=== PATIENT | male | born 1950 | race Caucasian/White ===

== ENCOUNTER → 2016-09-07 | Outpatient (CLI) | payer BC ==
--- NOTE | 2016-09-08 10:53 | MR ---
EXAMINATION: MR of the head without contrast. TECHNIQUE: Multiplanar multisequence imaging of the head without intravenous contrast. Diffusion omar ghted sequences were performed. HISTORY: Disorder of Vestibular function. FINDINGS: The cerebral hemispheres and deep nuclei are without hemorrhage, mass, or edema. There is mild gener alized atrophy. No evidence for restricted diffusion. No extraaxial collections or hemorrhage. The ventricular system is of normal size and configuration without hydrocephalus. Brainstem and cerebellum are without hemorrhage, mass, edema, gliosis or atrophy. The carotid basil ar artery flow voids are intact. The otomastoid airspaces are clear. No internal auditory canal or cerebellopontine angle masses. Paranasal sinuses are clear. The craniocervical junction is unremarkable without Chiari malformati on. IMPRESSION: 1. Mild generalized atrophy. 2. No acute intracranial findings. 3. No cerebellar pontine angle mass identified.
== END ==
LOC: MW.MRI 15:38
PROVIDERS: ATTEND Emergency Medicine
DX: H81.90 Unspecified disorder of vestibular function, unspecified ear (principal); G31.9 Degenerative disease of nervous system, unspecified
CPT/HCPCS: 70551; 70551-26